=== PATIENT | female | born 1985 | race Caucasian/White ===

== ENCOUNTER 2016-12-08 12:04 | Observation (INO) | payer BC, OTHER ==
[~2016-12-08] VITALS: Ht 162.6 cm; Wt 95.3 kg
--- NOTE | ~2016-12-08 | S ---
[facility] [place] [address] SURGICAL PATH RPT PROCEDURE Name: SHAKIR PRICE Room #: 424-P [facility] Claudia Collins#: [id number] Admission: 12/08/16 Date of : 89 Discharge: 12/09/16 Report #: [id number] Path Case #: [id number] PATHOLOGY REPORT COLLECTION DATE: 12/08/2016 RECEIVED DATE: 12/09/2016 SUBMITTING PHYS: Dr. Ike Patrick OTHER PHYS: Dr. Reji Cox SPECIMEN(S) RECEIVED: A.Appendix * * * * * * * * * * * * FINAL DIAGNOSIS: Appendix, appendectomy: Marked transmural acute inflammation consistent with acute appendicitis, along with marked serositis. (IUV:mml; 12/13/2016) PATHOLOGIST: Kayleigh Ardon M.D. REPORT ELECTRONICALLY SIGNED BY: Kayleigh Ardon M.D. DATE/TIME: 12/13/2016 16:14 * * * * * * * * * * * * GROSS PATHOLOGY: Received in formalin labeled "Shakir Price appendix," is an appendix measuring 4.9 cm in length and 0.7 cm in diameter with a large amount of attached mesoappendix. The serosal surface is smooth to shaggy and pale mcwilliams to curran in appearance. Sectioning reveals a patent to dilated lumen filled with dark brown fecal material. Rail Flaw Detector Operator sections are submitted in cassette A1. (DAC; 12/10/2016) CLINICAL HISTORY: Appendicitis INITIAL CPT CODE(S): A; 02699 Professional services performed by [facility] at [facility] [address], [place] [address] Technical services performed by [facility] at [address] [place] [id number]. [facility] [address] [place] [address] SURGICAL PATH RPT PROCEDURE Name: SHAKIR PRICE Room #: 424-P JESSY Collins#: [id number] Admission: 12/08/16 Date of : 89 Discharge: 12/09/16 Report #: [id number] Path Case #: [id number] [facility] [address] [address] PHONE: [phone] DIRECTOR: Joe Villalba M.D. * * * END OF REPORT * * *
--- NOTE | ~2016-12-08 | O ---
[facility] [place] [address] OPERATIVE REPORT Name: SHAKIR CARVAJAL Room #: 424-P ADM IN M.R.#: [id number] Admission: 12/08/16 Attend Phys: Reji Cox MD Discharge: Date of : 89 Report #: [id number] THIS REPORT FOR: //name// CC: IRINA Patrick MD DATE OF SERVICE: 12/09/2016 SURGEON: Ike Patrick MD [employer] SECURITY: None. PREOPERATIVE DIAGNOSIS: Acute appendicitis. POSTOPERATIVE DIAGNOSIS: Acute nonsuppurative, nonperforated appendicitis. PROCEDURE: Laparoscopic appendectomy. ANESTHESIA: General endotracheal anesthesia and local anesthetic. ESTIMATED BLOOD LOSS: 2 mL SPECIMEN: Appendix. COMPLICATIONS: None appreciated. INDICATIONS FOR PROCEDURE: This is a 31-year-old female patient, who was seen in [place] [facility] with acute-onset periumbilical abdominal pain localizing to her right lower quadrant. She has had fever and chills as well as nausea, vomiting and diarrhea. CT of the abdomen and pelvis revealed changes consistent with acute appendicitis without evidence for abscess or perforation. Physical exam was consistent with this. The patient presents now for laparoscopic appendectomy. OPERATIVE FINDINGS: Upon entrance into the abdominal cavity, the small bowel and colon in the surrounding area appeared otherwise normal. The appendix was inflamed, mostly at the distal half. The base of the appendix was relatively uninvolved with inflammation. There was no evidence for perforation or abscess. There was no other significant intraabdominal pathology identified other than bilateral inguinal hernias, which did not appear to be incarcerated. At the conclusion of the operation, the sponge, needle and instrument counts were correct. DESCRIPTION OF PROCEDURE IN DETAIL: After the risks, benefits, and expectations of the operation were discussed in detail with the patient, informed consent was [address] [address] OPERATIVE REPORT Name: HSAKIR CARVAJAL Room #: 424-P [facility] IN [facility]#: [id number] Admission: 12/08/16 Attend Phys: Reji Cox MD Discharge: Date of : 89 Report #: [id number] obtained. The patient was identified in the preoperative holding area. She was given IV antibiotics as documented in the chart in line with [facility] metrics. The patient was then taken to the operating room and she was placed in the supine position. SCDs were placed on the patient's bilateral lower extremities and pneumatic compression was initiated. The patient was then given IV sedation and she was intubated without incident. A time-out was performed to identify the correct patient and procedure. Local anesthetic was infiltrated into the skin and subcutaneous tissue infraumbilically where a curvilinear incision was made with #15 blade scalpel. Dissection was carried down to the fascia. A small transverse fascial incision was made and a 12-mm Visiport was placed intraperitoneally with a 0-degree angled laparoscope. Pneumoperitoneum was achieved with insufflation of carbon dioxide to 15 mmHg. A 30-degree angled laparoscope was inserted. A suprapubic 5 mm and left lower quadrant 5-mm port were each placed under direct visualization after local anesthetic was infiltrated into the skin and subcutaneous tissue and appropriately sized incisions were made. Operative findings are as noted above. The patient was placed in the Trendelenburg position, rotated to her left. The appendix was visualized in the right lower quadrant. A window was made in the mesoappendix adjacent to the base of the appendix. The blue load endoscopic MYRON stapler was then used to staple and divide the appendix at this level. The mesoappendix was divided with the ultrasonic dissector. The appendix and the mesoappendix were then placed in an Endopouch and removed through the infraumbilical port site. An 0 PDS suture was placed with the Sb-Sissy laparoscopic fascial closure device. The suture was tagged and the port was replaced. The bowel was then run backwards. There was no evidence for a Meckel's diverticulum or other significant pathology. Bilateral inguinal hernias were seen without bowel involvement or incarceration. The 12-mm port was removed and the suture was tied under direct visualization to ensure no incorporation of intraabdominal content. The abdominal cavity was then desufflated through the remaining ports. After desufflating the abdominal cavity as much as possible, the ports were removed. Interrupted subcuticular 4-0 Monocryl sutures and Dermabond were used to close the skin incisions. The patient tolerated the procedure well. She was awakened, extubated and taken to recovery room in stable condition with no apparent intraoperative complications. <ELECTRONICALLY SIGNED> By: Ike Patrick MD, FACS 12/09/1646 0542 5 Ike Patrick MD, FACS /nt
--- NOTE | ~2016-12-08 | HC ---
[facility] [place] [address] CONSULTATION Name: SHAKIR CARVAJAL Room #: 424-P ADM IN M.R.#: [id number] Admission: 12/08/16 Attend Phys: Reji Cox MD Discharge: Date of : 89 Report #: [id number] THIS REPORT FOR: //name// CC: IRINA Vega REASON FOR CONSULTATION: Abdominal pain. HISTORY OF PRESENT ILLNESS: This is a 31-year-old female patient with a history of asthma who was seen in the [place] [facility] with acute onset abdominal pain starting last night, periumbilically and localized into her right lower quadrant. She reports fever and chills as well as nausea and vomiting. She had been constipated, but now has diarrhea. CT of the abdomen and pelvis showed findings consistent with early acute appendicitis with thickening and mild enlargement of the appendix with appendiceal inflammatory soft tissue stranding. There was no evidence for abscess, perforation or periappendiceal mass. PAST MEDICAL HISTORY: Significant for asthma, endometriosis and IBS and gastroesophageal reflux. PAST SURGICAL HISTORY: Tonsillectomy and adenoidectomy. CURRENT MEDICATIONS: Include Nexium, Symbicort, and albuterol inhaler. ALLERGIES: Hyoscyamine. FAMILY HISTORY: Reviewed and noncontributory to this hospitalization. SOCIAL HISTORY: The patient denies use of tobacco or illicit drugs. She drinks alcohol on rare occasion socially. She works at a [employer]. REVIEW OF SYSTEMS: As per history of present illness. In addition: GENERAL: The patient reports fever and chills. Denies unintentional weight loss. HEENT: Denies changes in taste, vision, hearing, or smell. RESPIRATORY: Denies shortness of breath or COPD and has a history of asthma. CARDIOVASCULAR: Denies chest pain or palpitations. GASTROINTESTINAL: As per history of present illness. Denies bright red blood per rectum. GENITOURINARY: Denies dysuria, urgency, increased urinary frequency or hematuria. MUSCULOSKELETAL: Denies myalgia, arthralgia or arthritis. NEUROLOGIC: Denies headaches, numbness or tingling. PSYCHIATRIC: Denies depression, anxiety or suicidal ideations. SKIN AND INTEGUMENTARY: Denies new skin lesions, rashes, or moles. ENDOCRINE: Denies polydipsia, polyuria, heat or cold intolerance. [facility] [address] [place] [address] CONSULTATION Name: SHAKIR CARVAJAL Room #: 424-P [facility] IN M.R.#: [id number] Admission: 12/08/16 Attend Phys: Reji Cox MD Discharge: Date of : 89 Report #: [id number] All other review of systems is negative. PHYSICAL EXAMINATION: VITAL SIGNS: Temperature 37.0, blood pressure 118/61, pulse 80 and respirations 13. GENERAL: This is a 31-year-old obese female patient (class 2 obesity with BMI 36) in no acute distress. HEENT: Atraumatic, normocephalic with moist mucosal membranes. Oropharynx is clear. NECK: Supple, no appreciable lymphadenopathy. Trachea is midline. CHEST: Clear bilaterally. No crackles or wheezes. CARDIOVASCULAR: Regular rate and rhythm, S1, S2. ABDOMEN: Soft, but tender to palpation, greatest in the right lower quadrant over the McBurney's point. She has no rebound or guarding. No palpable masses, no appreciable hernias. GENITOURINARY: Normal external female genitalia. EXTREMITIES: No clubbing, cyanosis or edema. NEUROLOGIC: Cranial nerves 2-12 grossly intact. PSYCHIATRIC: Normal mood and affect. SKIN AND INTEGUMENTARY: No acute inflammatory changes, rashes or lesions are present. LABORATORY DATA: CBC shows a white blood cell count of 15.2, hemoglobin 11.4, hematocrit 34.5 and platelets 348. Electrolytes showed sodium of 134, potassium 3.6, chloride 101, CO2 of 25, BUN 12, creatinine 0.9 and glucose 88. Lactate was 1.3. Liver function tests were within normal limits. Urinalysis showed trace protein and trace leukocyte esterase. RADIOLOGIC STUDIES: CT of the abdomen and pelvis, findings are as noted above. IMPRESSION AND PLAN: This is a 31-year-old female patient with history of asthma, endometriosis and gastroesophageal reflux who now has signs and symptoms consistent with acute appendicitis. We discussed the pathophysiology and natural history of appendicitis as well as the treatment alternatives and surgical options. The patient would benefit from laparoscopic appendectomy. We discussed the risks, benefits, and expectations of the operation in detail. The patient expressed understanding and wishes to proceed. She will be taken to the operating room at the next earliest availability. I sincerely appreciate the opportunity to participate in the care of this patient and we will leave further recommendations and orders in the electronic medical record postoperatively. <ELECTRONICALLY SIGNED> By: Ike Patrick MD, FACS 12/09/16 0746 [id number] [id number] Ike Patrick MD, FACS /nt
[2016-12-08 12:04] VITALS: BP 123/85
[2016-12-08] MEDS ORDERED: NEXIUM 24HR20 M2 PO (12:17)
[2016-12-08] MEDS ORDERED: SYMBICORT160 MCG/4. INH (12:18)
[2016-12-08] MEDS ORDERED: ZERIT15 MG PO (12:19)
[2016-12-08] MEDS ORDERED: ALBUTEROL2.5 MG/0.1 INH (12:19)
[2016-12-08 12:41] LABS: ABSOLUTE NEUTROPHILS 11.3 thou/uL (1.4-8.2); BASOPHILS 0.5 % (0.0-2.0); EOSINOPHILS 1.5 % (0.0-3.0); HEMATOCRIT 34.5 % (37.0-47.0); HEMOGLOBIN 11.4 gm/dL (12.0-15.0); LYMPHOCYTES 16.3 % (24.0-44.0); MANUAL DIFF NO; MCHC 33.1 g/dL (28.0-37.0); MCV 78.6 fL (80.0-100.0); MONOCYTES 7.5 % (1.0-8.0); PLATELET COUNT 348 thou/uL (150-400); POLYS 74.2 % (36.0-66.0); RBC 4.38 mil/uL (4.20-5.00); RDW 14.3 % (10.5-14.5); WBC 15.2 thou/uL (4.0-11.0)
[2016-12-08 12:42] LABS: URINE BILIRUBIN NEGATIVE (Negative); URINE BLOOD NEGATIVE (Negative); URINE COLOR YELLOW; URINE GLUCOSE-RANDOM* NEGATIVE (Negative); URINE KETONES NEGATIVE (Negative); URINE NITRITE NEGATIVE (Negative); URINE PROTEIN (DIPSTICK) TRACE (Negative); URINE SPECIFIC GRAVITY 1.015 (1.003-1.035); URINE UROBILINOGEN 0.2 E.U./dl (0.2-1.0)
[2016-12-08 12:48] LABS: CALCIUM 8.9 mg/dL (8.5-10.1); CREATININE 0.9 mg/dL (0.6-1.0); POTASSIUM 3.6 mmol/L (3.5-5.1)
[2016-12-08 12:54] LABS: ALBUMIN 3.9 g/dL (3.4-5.0); DIRECT BILIRUBIN 0.1 mg/dL (<0.1-0.3); TOTAL BILIRUBIN 0.7 mg/dL (<0.1-1.0); TOTAL PROTEIN 7.4 g/dL (6.4-8.2)
[2016-12-08 15:02] VITALS: BP 118/63
[2016-12-08 15:39] VITALS: BP 118/61
[2016-12-08 19:00] VITALS: BP 112/62
[2016-12-08 19:32] VITALS: BP 106/2
[2016-12-09 03:48] VITALS: BP 101/49
[2016-12-09 06:48] LABS: HEMATOCRIT 31.3 % (37.0-47.0); HEMOGLOBIN 10.2 gm/dL (12.0-15.0); MCHC 32.7 g/dL (28.0-37.0); MCV 79.3 fL (80.0-100.0); RBC 3.95 mil/uL (4.20-5.00); RDW 14.6 % (10.5-14.5)
[2016-12-09 08:00] VITALS: BP 108/56
[2016-12-09] MEDS ORDERED: HYDROCODONE-AP1 EAC6 PO (08:04)
[2016-12-09] MEDS ORDERED: SENNA-S TABLET1 EACH PO (08:04)
[2016-12-09 14:00] VITALS: BP 108/56
== END 2016-12-09 15:45 | disposition home or self-care (01) ==
LOC: ER 12:04 → 4E 14:39 → EROBS 14:39 → 4E 15:41 → ENTRNSPT 12-09 14:32 → EDTRNSPTSTS 12-09 14:33 → 4E 12-09 15:45
PROVIDERS: Emergency Medicine; Surgery
DX: K35.80 Unspecified acute appendicitis (principal)
CPT/HCPCS: 10183; 50101; 50249; 50411; 50555; 50558; 50739; 50740; 50962; 51975; 52265; 53307; 54022; 54118; 62110; 62900; 70005